=== PATIENT | male | born 1975 | race Two or more races ===

== ENCOUNTER 2025-06-07 13:12 | Emergency (ER) | payer SELFPAY ==
[~2025-06-07] VITALS: Ht 172.7 cm; Wt 140.0 kg
[2025-06-07 13:20] VITALS: BP 120/71; PULSE 116; RESP 16; TEMP 98.1; O2SAT 94
== END 2025-06-07 14:22 | disposition home or self-care (01) ==
LOC: ER 13:12 → CANBEDREQ 13:57 → ER 14:22
DX: R56.9 Unspecified convulsions (principal)
CPT/HCPCS: 99283